=== PATIENT | male | born 1980 | race Caucasian/White ===

== ENCOUNTER 2024-02-21 20:45 | Emergency (ER) | payer OTHER ==
[~2024-02-21] VITALS: Ht 182.9 cm; Wt 122.0 kg
[2024-02-21 21:17] LABS: BASOPHILS % (AUTO) 0.6 % (0-1); EOSINOPHILS # (AUTO) 0.1 X10'3 (0-0.9); EOSINOPHILS % (AUTO) 1.8 % (0-6); HEMOGLOBIN 15.8 g/dl (14.0-17.9); LYMPHOCYTES # (AUTO) 1.9 X10'3 (1.1-4.8); LYMPHOCYTES % (AUTO) 27.5 % (21-51); MEAN CORPUSCULAR HEMOGLOBIN 29.7 PG (27.0-31.0); MEAN CORPUSCULAR HGB CONC 33.7 g/dL (33.0-36.5); MEAN CORPUSCULAR VOLUME 88.1 FL (78-98); MEAN PLATELET VOLUME 7.8 FL (7.4-10.4); MONOCYTES # (AUTO) 0.7 X10'3 (0-0.9); MONOCYTES % (AUTO) 10.5 % (2-12); NEUTROPHILS # (AUTO) 4.1 X10'3 (1.8-7.7); NEUTROPHILS % (AUTO) 59.6 % (42-75); PLATELET COUNT 218 X10'3 (140-440); RED BLOOD COUNT 5.33 X10'6 (4.70-6.10); RED CELL DISTRIBUTION WIDTH 13.1 % (11.5-14.5); WHITE BLOOD COUNT 6.9 X10'3 (4.5-11.0)
[2024-02-21 21:30] LABS: ALANINE AMINOTRANSFERASE 56 U/L (12-78); ALBUMIN 3.1 G/DL (3.4-5.0); ALBUMIN/GLOBULIN RATIO 0.7 (1.1-1.5); ALKALINE PHOSPHATASE 57 IU/L (46-116); ANION GAP 9 (8-16); ASPARTATE AMINO TRANSFERASE 30 U/L (10-37); BILIRUBIN,TOTAL 0.2 MG/DL (0.1-1.0); BLOOD UREA NITROGEN 9 MG/DL (7-18); CALCIUM 8.4 MG/DL (8.5-10.1); CHLORIDE 106 MMOL/L (99-107); ETHANOL < 10 MG/DL (<10); GLUCOSE 128 MG/DL (70-104); MAGNESIUM 1.8 MG/DL (1.5-2.4); POTASSIUM 3.4 MMOL/L (3.5-5.1); SODIUM 141 MMOL/L (135-145); TOTAL CARBON DIOXIDE 26.4 MMOL/L (24-32); TOTAL PROTEIN 7.4 G/DL (6.4-8.2); eCRCL 114 ML/MIN; eGFR > 90 ML/MIN
[2024-02-21] MEDS ORDERED: proCHLORperazine 10 MG/2 ml inj IV PRN (21:40)
[2024-02-21] MEDS: diphenhydrAMINE 50 mg/ml inj IV ONE (21:46)
[2024-02-21] MEDS: proCHLORperazine 10 MG/2 ml inj IV ONE (21:46)
[2024-02-21] MEDS: ondansetron/PF 4mg/2ml inj IV ONE (21:54)
[2024-02-21] MEDS: normal saline 1000ml 1,000 ML IV ONE (21:54)
--- NOTE | 2024-02-21 22:15 | NUR ---
updated on plan of care with patients approval , provided phone number Diane [phone]
[2024-02-21 22:25] LABS: URINE AMPHETAMINE SCREEN POSITIVE (Neg); URINE BARBITUATE SCREEN NEGATIVE (Neg); URINE BENZODIAZEPINES SCREEN NEGATIVE (Neg); URINE CANNABINOID SCREEN POSITIVE (Neg); URINE COCAINE SCREEN NEGATIVE (Neg); URINE METHADONE SCREEN NEGATIVE (Neg); URINE OPIATE SCREEN NEGATIVE (Neg); URINE PHENCYCLIDINE SCREEN NEGATIVE (Neg)
[2024-02-22 04:34] VITALS: BP 183/115; PULSE 79; RESP 18; TEMP 98.1; O2SAT 98
== END 2024-02-22 04:28 | disposition home or self-care (01) ==
LOC: ER 20:46
DX: R51.9 Headache, unspecified (principal); R11.0 Nausea; I10 Essential (primary) hypertension; Z88.8 Allergy status to other drugs, medicaments and biological substances
CPT/HCPCS: 36415; 70450; 80053; 80305; 80320; 83735; 85025; 96361; 96374; 96375; 99285; J0780; J1200; J2405; J7030

== ENCOUNTER 2024-03-31 00:09 | Emergency (ER) | payer MEDICAID, OTHER ==
[~2024-03-31] VITALS: Ht 175.3 cm; Wt 125.0 kg
[2024-03-31 00:14] VITALS: BP 154/124; PULSE 77; RESP 20; TEMP 97.5; O2SAT 96
[2024-04-01] MEDS ORDERED: IRBE150T51 PO (17:43)
== END 2024-03-31 01:17 | disposition left against medical advice (07) ==
LOC: ER 00:11
DX: R11.10 Vomiting, unspecified (principal); Z53.21 Procedure and treatment not carried out due to patient leaving prior to being seen by health care provider

== ENCOUNTER 2024-04-01 11:50 | Emergency (ER) | payer MEDICAID ==
[~2024-04-01] VITALS: Ht 177.8 cm; Wt 127.7 kg
[2024-04-01 12:19] LABS: BASOPHILS # (AUTO) 0.1 X10'3 (0-0.2); BASOPHILS % (AUTO) 0.8 % (0-1); EOSINOPHILS # (AUTO) 0.2 X10'3 (0-0.9); EOSINOPHILS % (AUTO) 3.1 % (0-6); HEMATOCRIT 48.8 % (42.0-52.0); HEMOGLOBIN 16.5 g/dl (14.0-17.9); LYMPHOCYTES % (AUTO) 31.6 % (21-51); MEAN CORPUSCULAR HEMOGLOBIN 30.3 PG (27.0-31.0); MEAN CORPUSCULAR HGB CONC 33.9 g/dL (33.0-36.5); MEAN CORPUSCULAR VOLUME 89.4 FL (78-98); MONOCYTES # (AUTO) 0.6 X10'3 (0-0.9); MONOCYTES % (AUTO) 8.6 % (2-12); NEUTROPHILS # (AUTO) 3.6 X10'3 (1.8-7.7); NEUTROPHILS % (AUTO) 55.9 % (42-75); PLATELET COUNT 233 X10'3 (140-440); RED BLOOD COUNT 5.46 X10'6 (4.70-6.10); RED CELL DISTRIBUTION WIDTH 14.6 % (11.5-14.5); WHITE BLOOD COUNT 6.5 X10'3 (4.5-11.0)
[2024-04-01 12:36] LABS: ALANINE AMINOTRANSFERASE 38 U/L (12-78); ALBUMIN 3.2 G/DL (3.4-5.0); ALBUMIN/GLOBULIN RATIO 0.7 (1.1-1.5); ALKALINE PHOSPHATASE 57 IU/L (46-116); ANION GAP 3 (8-16); ASPARTATE AMINO TRANSFERASE 30 U/L (10-37); BILIRUBIN,TOTAL 0.2 MG/DL (0.1-1.0); BLOOD UREA NITROGEN 12 MG/DL (7-18); CALCIUM 8.3 MG/DL (8.5-10.1); CHLORIDE 106 MMOL/L (99-107); GLUCOSE 112 MG/DL (70-104); POTASSIUM 4.1 MMOL/L (3.5-5.1); SODIUM 137 MMOL/L (135-145); TOTAL CARBON DIOXIDE 27.8 MMOL/L (24-32); TOTAL PROTEIN 7.5 G/DL (6.4-8.2); eCRCL 96 ML/MIN; eGFR 81 ML/MIN
[2024-04-01 12:43] LABS: PRO BRAIN NATRIURETIC PEPTIDE 80 PG/ML (0-125)
[2024-04-01 13:41] VITALS: TEMP 97.8
[2024-04-01] MEDS: labetalol 100mg tablet PO ONE (13:44)
[2024-04-01] MEDS: labetalol 100mg tablet PO SCH (13:46)
[2024-04-01] MEDS: diphenhydrAMINE 50 mg/ml inj IV ONE (15:29)
[2024-04-01] MEDS: metoclopramide 5 mg/ml inj IV ONE (15:29)
[2024-04-01] MEDS: acetaminophen 1,000mg/100ml IV 100 ML IV ONE (15:30)
[2024-04-01] MEDS: labetalol 100mg tablet PO STA (15:49)
[2024-04-01] MEDS: normal saline 1000ML IV soln IVB ONE (15:50)
[2024-04-01] MEDS ORDERED: IRBE150T51 PO (17:43)
[2024-04-01 17:52] VITALS: BP 153/110; PULSE 68; RESP 12; O2SAT 98
== END 2024-04-01 17:54 | disposition home or self-care (01) ==
LOC: ER 11:51
DX: R51.9 Headache, unspecified (principal); I10 Essential (primary) hypertension; F17.200 Nicotine dependence, unspecified, uncomplicated; R07.89 Other chest pain; Z88.6 Allergy status to analgesic agent; Z79.899 Other long term (current) drug therapy
CPT/HCPCS: 36415; 70450; 71045; 80053; 83880; 84484; 85025; 93005; 96374; 96375; 99285; J0131; J1200; J2765; J7030; J7040

== ENCOUNTER 2024-10-24 15:32 | Emergency (ER) | payer MEDICAID ==
[~2024-10-24] VITALS: Ht 180.3 cm; Wt 129.6 kg
[2024-10-24 15:39] VITALS: TEMP 98.3
--- NOTE | 2024-10-24 15:52 | ELECTROCARDIOGRAPH REPORT ---
[facility] Test Date: 2024-10-24 Test Time: 15:48:15 Pat Name: AMELIA GUAMAN Department: EMERGENCY ROOM Room: Gender: M [employer] Detoxification Specialist: STUDENT : 1980 Requested By: NONI HEATH Order Number: [id number] Reading MD: Dr. Edenilson Neff Measurements Intervals [place] Rate: 93 P: 52 [place]: 180 QRS: 88 QRSD: 100 T: 32 QT: 383 QTc: 477 Interpretive Statements Sinus rhythm Biatrial enlargement Left ventricular hypertrophy ST elev, probable normal early repol pattern Borderline prolonged QT interval Electronically Signed On 10-24-2024 18:45:[address] Edenilson Neff Please click the below link to view image of tracing.
[2024-10-24] MEDS ORDERED: LORazepam 2 mg/ml vial IV ONE (16:10)
[2024-10-24] MEDS ORDERED: HYDR-3686 PO (16:12)
--- NOTE | 2024-10-24 16:12 | Physician Documentation ---
History of Present Illness ~ Chief Complaint: Anxiety Stated Complaint: ANXIETY Time Seen by MD: 15:41 Primary Medical Doctor: none HPI 44-year-old male presents to the ED with a complaint of a panic attack this afternoon. He states had his landlord and property consultant have created multiple life stressors and was advised of a largely increased rent today when he began having symptoms. He states he ended up freaking out. She still has kind of numbness in his head and an extremities. Denies any chest pain or shortness of breath but states he felt like he was short of breath at the time of the incident. He states he has never had a panic attack like this. Day of Onset: October 24, 2024 Medication Reconciliation Allergies: Coded Allergies: ibuprofen (Verified Allergy, Unknown, breaks out hives, 04/01/24) Scheduled Hydroxyzine Hcl* (Atarax*), 1 TAB PO Q12H Past Medical History Past Medical History: Hypertension Review of Systems All Other Systems at this time: Reviewed and Negative ROS As stated above in the HPI, otherwise all systems are reviewed and negative. Physical Exam Vital Signs: Temperature: 98.3, Source: Oral, Heart Rate: 91, Respiratory Rate: 16, BP: 150/112, Pulse Oximetry: 99, Weight: 129.550 Oxygen Flow Rate: 0 Physical Exam General: Alert, no apparent distress. Neck: Full range of motion. Neurologic: Oriented x4. Psychiatric: Anxious appearing Skin: Normal color, warm and dry. No edema, no ecchymosis. Progress Results/Orders Results/Orders Orders - WALLY HEATH [employer] Chest,Single View (10/24/24 15:45) Completed Orders - WALLY HEATH [employer] Chest,Single View (10/24/24 15:45) Electrocardiogram (10/24/24 15:45) Diazepam Inj (Valium Inj) (10/24/24 16:15) Mag & Alum Hydrox/Simeth Susp (Maalox Or (10/24/24 17:05) Medications Received in ER Medications (Trade) Dose Ordered Sig/Genesis Route PRN Reason Start Time Stop Time Status Last Admin Dose Admin (Valium inj) 10 mg ONCE ONCE IV 10/24/24 16:15 10/24/24 16:16 DC 10/24/24 16:30 10 MG (Maalox oral suspension) 30 ml ONCE ONCE PO 10/24/24 17:05 10/24/24 17:06 DC 10/24/24 17:12 30 ML Vital Signs 10/24/24 10/24/24 10/24/24 15:39 16:57 17:24 Temp 98.3 Pulse 91 80 Resp 16 18 B/P (MAP) 150/112 151/112 Pulse Ox 99 95 O2 Flow Rate 0 Medical Decision Making Findings This patient presents with a all the indications of a panic attack. Going to treat him with benzodiazepines in the ED with the advice to seek therapy and take outpatient medications to avoid further exacerbation. He was not present as though he was having a cardiac event. Differential Dx:Considerations: Include: Alcohol abuse, Anxiety, Bipolar disorder, Conversion disorder, Depression, Encephaloathy, Homicidal, Panic disorder, Personality disorder, Schizophrenia, Substance abuse, Suicidal, Other Departure Disposition: 01 HOME / SELF CARE / HOMELESS Impression: Primary Impression: Panic attack Additional Impression: Anxiety attack Condition: Improved Discharge Instructions: Panic Attack, Emotional Crisis Referrals: NO PRIMARY CARE PROVIDER (PCP) Prescriptions Hydroxyzine Hcl* (Atarax*) 25 Mg Tablet 1 TAB PO Q12H for anxiety for 30 Days, #60 TAB Prov: WALLY HEATH NP 10/24/24 Education Educated: Patient Signature Scribe Signature: t Attestation: The note accurately reflects work and decisions made by me.Wally Heath - COREEN 10/24/24 18:35 WALLY HEATH NP October 24, 2024 16:12
--- NOTE | 2024-10-24 16:28 | RADIOLOGY REPORT ---
CHEST RADIOGRAPH Indication: CP Technique: Single frontal view of the chest was obtained Comparison: DI CHEST,SINGLE VIEW on DOS: 04/01/24 FINDINGS: Lines and Tubes: None Lungs: No focal consolidation. Pleura: No effusion. No pneumothorax. Cardiomediastinal contours: Unremarkable Bones: No acute osseous abnormality. IMPRESSION: 1. No acute cardiopulmonary disease.
[2024-10-24] MEDS: diazepam inj 5 MG/ML inj. IV ONE (16:30)
[2024-10-24] MEDS: mag hydrox/Alum hydrox/simeth 30ml oral suspension PO ONE (17:12)
[2024-10-24 17:24] VITALS: BP 151/112; PULSE 80; RESP 18; O2SAT 95
== END 2024-10-24 17:27 | disposition home or self-care (01) ==
LOC: ER 15:33
DX: F41.0 Panic disorder [episodic paroxysmal anxiety] (principal); I10 Essential (primary) hypertension; Z88.6 Allergy status to analgesic agent
CPT/HCPCS: 71045; 93005; 96374; 99283; J3360